=== PATIENT | male | born 1935 | race Caucasian/White ===

== ENCOUNTER → 2018-05-12 | Day surgery (SDC) | payer MEDICARE, OTHER ==
[~2018-05-12] VITALS: Ht 167.6 cm; Wt 53.5 kg
[~2018-05-12] MED LIST: ASPIRIN ADULT L81 M2 PO; ATORVASTATIN CA20 M1 PO; CARVEDILOL3.125 MG PO; LISINOPRIL2.5 MG PO; PLAVIX75 M1 PO
--- NOTE | ~2018-05-12 | O ---
[place], [place] OPERATIVE NOTE NAME: [id number] UNIT #: [id number] ROOM: DOCTOR: KENNETH ANGEL MD BIRTHDATE: [birth year] DOS: 05/12/2018 PREOPERATIVE DIAGNOSIS: Cataract, left eye. POSTOPERATIVE DIAGNOSIS: Cataract, left eye. OPERATION: Extracapsular cataract extraction by phacoemulsification with posterior chamber intraocular lens implantation, left eye. ANESTHESIA: Monitored standby. OPERATIVE FINDINGS AND PROCEDURE: 2% Xylocaine topical anesthetic gel was applied to the eye in the preop area. The patient was taken to the operating room and prepped and draped in the standard fashion for sterile intraocular surgery. A time out procedure was performed verifying correct patient, correct site and corrects lens with Reece Angel M.D. The operating microscope was swung into position and the lid speculum was inserted. Using a Lorrie paracentesis blade, a paracentesis was made through clear cornea. Viscoelastic was used to fill the anterior chamber. Using a metal keratome a 2.4 mm self-sealing clear corneal cataract incision was made temporally at the limbus. Using a pre-bent 25 gauge cystotome needle, a standard continuous curvilinear capsulorrhexis was performed. The anterior capsule was removed with forceps. The lens nucleus was hydrodissected and phacoemulsified in the posterior chamber. As the last quadrant of the nucleus was being removed, a radial anterior capsular tear was noted nasally. The remaining cortical material was removed with irrigation aspiration handpiece. Additional Viscoat was applied to the bag nasally while the last nuclear fragment was removed. The capsular radial tear did not extend beyond the equator. Viscoelastic was used to fill the anterior chamber and capsular bag. A posterior chamber intraocular lens manufactured by [employer] Model [id number] was placed into the posterior chamber and within the capsular bag and it was well centered with a cyclodialysis spatula without extension of the radial tear. Viscoelastic was removed with the irrigation aspiration hand piece and the posterior capsule was then polished with a curet under irrigation. The posterior chamber and capsular bag were filled with viscoelastic. A posterior chamber intraocular lens manufactured by: [employer], Model #[id number], and ____ diopters in strength were then inserted into the posterior chamber and within the capsular bag using the lens cartridge and injector system. Viscoelastic was removed using the irrigation aspiration handpiece. The anterior chamber was filled with balanced salt solution through the paracentesis. Both the paracentesis site and cataract incisions were hydrated with BSS and verified to be water-tight and self-sealing. Cefuroxime 1 mg/0.1 mL was injected into the anterior chamber through the paracentesis site. The incision checked to be water-tight using a Weck-Sendy sponge. The integrity of the cataract wound and ocular tension were checked. Lid speculum and drapes were removed. The patient was transferred from the operating room to the recovery room in satisfactory condition. [place], [place] OPERATIVE NOTE NAME: SHELLEYISRA MEDLEY UNIT #: [id number] ROOM: DOCTOR: KENNETH ANGEL MD BIRTHDATE: [birth year] KENNETH ANGEL MD CM:OPRECORD:OPERATIVE NOTE [id number] KENNETH ANGEL MD 05/12/18 1715 interface
[2018-05-12 15:00] VITALS: BP 140/74
[2018-05-12 16:33] VITALS: BP 132/66
[2018-05-12 16:48] VITALS: BP 126/70
[2018-05-12 17:03] VITALS: BP 137/68
== END | disposition home or self-care (01) ==
LOC: SDC 05-07 11:45
DX: H25.812 Combined forms of age-related cataract, left eye (principal); I25.10 Atherosclerotic heart disease of native coronary artery without angina pectoris; K21.9 Gastro-esophageal reflux disease without esophagitis; J44.9 Chronic obstructive pulmonary disease, unspecified; Z79.82 Long term (current) use of aspirin; Z79.899 Other long term (current) drug therapy; Z87.01 Personal history of pneumonia (recurrent); Z87.891 Personal history of nicotine dependence; Z98.890 Other specified postprocedural states; Z95.5 Presence of coronary angioplasty implant and graft

== ENCOUNTER → 2018-06-02 | Day surgery (SDC) | payer MEDICARE, OTHER ==
[~2018-06-02] VITALS: Ht 167.6 cm; Wt 54.4 kg
--- NOTE | ~2018-06-02 | O ---
[place], [place] OPERATIVE NOTE NAME: [facility]PO [facility] [id number] UNIT #: [id number] ROOM: DOCTOR: KENNETH ANGEL MD BIRTHDATE: [birth year] DOS: 06/02/2018 PREOPERATIVE DIAGNOSIS: Cataract, right eye. POSTOPERATIVE DIAGNOSIS: Cataract, right eye. OPERATION: Extracapsular cataract extraction by phacoemulsification with posterior chamber intraocular lens implantation, right eye. ANESTHESIA: Monitored standby. OPERATIVE FINDINGS AND PROCEDURE: 2% Xylocaine topical anesthetic gel was applied to the eye in the preop area. The patient was taken to the operating room and prepped and draped in the standard fashion for sterile intraocular surgery. A time out procedure was performed verifying correct patient, correct site and corrects lens with Reece Angel M.D. The operating microscope was swung into position and the lid speculum was inserted. Using a Lorrie paracentesis blade, a paracentesis was made through clear cornea. Viscoelastic was used to fill the anterior chamber. Using a metal keratome a 2.4 mm self-sealing clear corneal cataract incision was made temporally at the limbus. Using a pre-bent 25 gauge cystotome needle, a standard continuous curvilinear capsulorrhexis was performed. The anterior capsule was removed with forceps. The lens nucleus was hydrodissected and phacoemulsified in the posterior chamber. Cortical material was removed with the irrigation aspiration hand piece and the posterior capsule was then polished with a curet under irrigation. The posterior chamber and capsular bag were filled with viscoelastic. A posterior chamber intraocular lens manufactured by: [employer], Model #[id number], and 23.5 diopters in strength were then inserted into the posterior chamber and within the capsular bag using the lens cartridge and injector system. Viscoelastic was removed using the irrigation aspiration handpiece. The anterior chamber was filled with balanced salt solution through the paracentesis. Both the paracentesis site and cataract incisions were hydrated with BSS and verified to be water-tight and self-sealing. Cefuroxime 1 mg/0.1 mL was injected into the anterior chamber through the paracentesis site. The incision checked to be water-tight using a Weck-Sendy sponge. The integrity of the cataract wound and ocular tension were checked. Lid speculum and drapes were removed. The patient was transferred from the operating room to the recovery room in satisfactory condition. [place], [place] OPERATIVE NOTE NAME: ISRA CRESPO UNIT #: [id number] ROOM: DOCTOR: KENNETH ANGEL MD BIRTHDATE: [birth year] KENNETH ANGEL MD CM:OPRECORD:OPERATIVE NOTE [id number] KENNETH ANGEL MD 06/02/18 1128 interface
[2018-06-02 10:10] VITALS: BP 139/72
[2018-06-02 11:08] VITALS: BP 104/61
[2018-06-02 11:15] VITALS: BP 107/59
[2018-06-02 11:32] VITALS: BP 131/89
== END | disposition home or self-care (01) ==
LOC: SDC 05-28 12:30
DX: H25.811 Combined forms of age-related cataract, right eye (principal); I25.10 Atherosclerotic heart disease of native coronary artery without angina pectoris; I25.2 Old myocardial infarction; E78.5 Hyperlipidemia, unspecified; Z87.01 Personal history of pneumonia (recurrent); Z87.891 Personal history of nicotine dependence; Z98.42 Cataract extraction status, left eye; Z96.1 Presence of intraocular lens; Z79.82 Long term (current) use of aspirin; Z79.899 Other long term (current) drug therapy; Z98.890 Other specified postprocedural states; Z95.5 Presence of coronary angioplasty implant and graft